=== PATIENT | male | born 1975 | race Asian ===

== ENCOUNTER 2018-07-11 11:10 | Emergency (ER) | payer MEDICAID ==
[~2018-07-11] VITALS: Ht 162.6 cm; Wt 56.7 kg
[2018-07-11 11:13] VITALS: BP 112/71; Ht 162.6 cm; Wt 56.7 kg
== END 2018-07-11 11:43 | disposition home or self-care (01) ==
LOC: ED 11:10
DX: T63.001A Toxic effect of unspecified snake venom, accidental (unintentional), initial encounter (principal); Y92.89 Other specified places as the place of occurrence of the external cause